=== PATIENT | female | born 1955 | race Caucasian/White ===

== ENCOUNTER → 2019-05-28 | Outpatient (CLI) | payer MEDICARE | END | disposition home or self-care (01) | LOC: PREOP 09:49 | PROVIDERS: ATTEND Surgery | DX: Z01.818 Encounter for other preprocedural examination (principal) ==

== ENCOUNTER 2019-08-04 05:33 | Outpatient (CLI) | payer MEDICARE ==
[~2019-08-04] VITALS: Ht 157 cm; Wt 71.0 kg
[2019-08-04] MEDS ORDERED: BUPR8TAB SL (08:53)
[2019-08-04 09:11] VITALS: BP 136/71
[2019-08-04] MEDS ORDERED: LINA290C PO (10:10)
[2019-08-04] MEDS ORDERED: LORA10TA7 PO (10:10)
[2019-08-04] MEDS ORDERED: LISI40TA PO (10:10)
[2019-08-04] MEDS ORDERED: CARV25TA PO (10:10)
[2019-08-04] MEDS ORDERED: CLON0.5T4 PO (10:10)
[2019-08-04] MEDS ORDERED: PRAV80TA2 PO (10:10)
[2019-08-04] MEDS ORDERED: MONT10TA24 PO (10:10)
[2019-08-04] MEDS ORDERED: MELO15TA39 PO (10:10)
[2019-08-04] MEDS ORDERED: OMEP40CA27 PO (10:10)
[2019-08-04] MEDS ORDERED: ZOLP10TA5 PO (10:10)
== END 2019-08-04 15:00 | disposition home or self-care (01) ==
LOC: PREOP 05:33 → EDBD 05:33 → PREOP 15:00
PROVIDERS: ATTEND Surgery
DX: Z01.818 Encounter for other preprocedural examination (principal)
CPT/HCPCS: 87081

== ENCOUNTER 2019-08-25 06:49 | Day surgery (SDC) | payer MEDICARE ==
[2019-08-25] VITALS (12 sets, daily range): BP systolic 137–205; BP diastolic 66–94
[~2019-08-25] VITALS: Ht 157 cm; Wt 71.0 kg
[~2019-08-25 06:49] MED LIST: BUPR8TAB SL; CARV25TA PO; CLON0.5T4 PO; HEParin (CATH LAB) 2,000 ML IV ONE; LIDOCAINE 1% INJ 20 ML 20 ML VIAL ONE; LINA290C PO; LISI40TA PO; LORA10TA7 PO; MELO15TA39 PO; MONT10TA24 PO; NS IV 1000 ML 1,000 ML ONE; OMEP40CA27 PO; PRAV80TA2 PO; ZOLP10TA5 PO
[2019-08-25 07:12] LABS: HEMOGLOBIN 13.1 G/DL (11.5-16.0); MEAN PLATELET VOLUME 10.5 FL (7.4-10.4); RED CELL DISTRIBUTION WIDTH 12.3 % (10.0-14.5); WHITE BLOOD COUNT 10.5 10^3/uL (4.3-11.0)
[2019-08-25] MEDS: NS IV 1000 ML 1,000 ML IV SCH ×2 (07:12→10:28)
[2019-08-25 07:24] LABS: INR 0.9 (0.8-1.4); PROTHROMBIN TIME PATIENT 12.1 SEC (12.2-14.7)
[2019-08-25 07:30] LABS: ALANINE AMINOTRANSFERASE 23 U/L (0-55); ALBUMIN 4.2 GM/DL (3.2-4.5); ALKALINE PHOSPHATASE 64 U/L (40-136); BILIRUBIN,TOTAL 0.4 MG/DL (0.1-1.0); BUN/CREATININE RATIO 19; CARBON DIOXIDE 28 MMOL/L (21-32); CHLORIDE 105 MMOL/L (98-107); CHOLESTEROL 123 MG/DL (< 200); CREATININE SERUM 0.79 MG/DL (0.60-1.30); GFR ESTIMATED > 60; GLUCOSE 89 MG/DL (70-105); HDL CHOLESTEROL 37 MG/DL (40-60); SODIUM 142 MMOL/L (135-145); TOTAL PROTEIN 7.3 GM/DL (6.4-8.2); TRIGLYCERIDES 146 MG/DL (<150); VLDL CHOLESTEROL 29 MG/DL (5-40)
[2019-08-25] MEDS ORDERED: CLOP75TA69 PO (07:42)
[2019-08-25] MEDS ORDERED: CLON0.5T PO (07:42)
[2019-08-25] MEDS ORDERED: OMEP40CA27 PO (07:42)
[2019-08-25] MEDS ORDERED: BISA5TAB PO (07:42)
[2019-08-25] MEDS ORDERED: ASPI-586 PO (07:42)
[2019-08-25] MEDS ORDERED: fentaNYL INJECTION 100 MCG/2 ML AMP ONE ×2 (08:24→09:32)
[2019-08-25] MEDS ORDERED: MIDAZOLAM 5 MG/5 ML (VERSED) VIAL ONE (08:24)
--- NOTE | 2019-08-25 08:28 | NUR ---
SPOKE WITH THE PT (SHE HAD ALL HER MED BOTTLES) TO COMPLETE THE MED REC. PT WAS ABLE TO TELL ME HOW/WHEN SHE TAKES EACH MED. PT TAKES ALL HER ONCE DAILY MEDS AT AROUND 1900 COREG 25: THE BOTTLE SAYS " 1 TAB BID" HOWEVER THE PT SAYS THE DR DECREASED THAT TO JUST ONCE DAILY AND THAT IS HOW SHE TAKES IT NOW. SHE ALSO HAD A BOTTLE OF THE COREG 12.5MG 1 TAB BID- THE PATIENT SAYS SHE DOES NOT TAKE THIS STRENGTH AND ONLY HAS IT INCASE SHE RUNS OUT OF THE 25MG THEN SHE WILL DOUBLE UP ON THE 12.5MG. THE FOLLOWING ARE FILL DATES FROM [facility]: 04-29-2019 COREG 25MG #180/180DS (SEE ABOVE NOTE) 06-13-2019 PRAVASTATIN 80MG #90/90DS 06-26-2019 MELOXICAM 15MG #90/90DS 06-28-2019 LORATADINE 10MG #90/90DS 07-16-2019 OMEPRAZOLE 40MG #90\\PRN 07-19-2019 LINZESS 290MCG #30/30DS 08-12-2019 MONTELUKAST 10MG #30/30DS 08-12-2019 LISINOPRIL 40MG #90/90DS 08-17-2019 ZOLPIDEM 10MG #30/30DS 08-17-2019 CLONAZEPAM 0.5MG #120/PRN 08-17-2019 PLAVIX 75MG #90/90DS 08-17-2019 GENTLE LAX 5MG #30/30DS 08-18-2019 BUPRENORPHINE 8MG #75 OTC MEDS: ASPIRIN
[2019-08-25] MEDS ORDERED: HEParin 1000 UNIT/ML (10ML VIAL) FOR BOLUS ONE (09:41)
[2019-08-25] MEDS ORDERED: EPTIFIBATIDE BOLUS 20 ML IV ONE (09:42)
[2019-08-25] MEDS ORDERED: MIDAZOLAM 2 MG/2 ML (VERSED) VIAL ONE ×2 (09:42→10:00)
[2019-08-25] MEDS ORDERED: NS IV 1000 ML 1,000 ML ONE (10:04)
[2019-08-25] MEDS ORDERED: NS IV 1000 ML 1,000 ML IV SCH (11:25)
--- NOTE | 2019-08-25 11:25 | Cardiac Procedure Note-CS/ASA ---
Pre-Procedure Note Pre-Op Procedure Note H&P Reviewed The H&P was reviewed, patient examined and no changes noted. Date H&P Reviewed: Aug 25, 2019 Time H&P Reviewed: 08:50 Conscious Sedation Pre-Proced Time 08:50 ASA Score 3 For ASA 3 and 4: Consider anesthesia and medical clearance. Also, for patients with a history of failed moderate sedation consider anesthesia. Airway Lungs Heart ASA score ASA 1: a normal healthy patient ASA 2: a patient with a mild systemic disease (mid diabetes, controlled hypertension, obesity ASA 3: a patient with a severe systemic disease that limits activity (angina, COPD, prior Myocardial infarction) ASA 4: a patient with an incapacitating disease that is a constant threat to life (CHF, renal failure) ASA 5: a moribund patient not expected to survive 24 hrs. (ruptured aneurysm) ASA 6: a declared brain- patient whose organs are being harvested. For emergent operations, add the letter E after the classification Mallampati Classification Grade 2 Sedation Plan Analgesia, Amnesia, Plan communicated to team members, Discussed options with patient/fam, Discussed risks with patient/fam The patient is an appropriate candidate to undergo the planned procedure, sedation, and anesthesia. The patient immediately re-assessed prior to indication. VANESA MENDEZ MD FACP FAC CCDS Aug 25, 2019 11:25
--- NOTE | 2019-08-25 11:29 | Discharge Inst-Post CATH ---
Discharge Inst-CATH/EP Post Cardiac Cath/EP D/C Inst Follow Up/Plan F/u with Dr Vega next week ACTIVITY * Go Home directly and rest. * Limit activity of the leg (or wrist if it was used) for 7 days including aerobics, swimming, jogging, bicycling, etc. * Restrict stair-climbing for 7 days if possible, if not, climb up with your no n-cath leg, then bring together on the same step. * Avoid lifting, pushing, pulling or excessive movement of the affected ext remity for 7 days. * Customary sexual activity may be resumed after 2 days-use caution not to use a position that strains or causes pain to the affected extremity. * No driving for 24 hours. * NO SMOKING. * Avoid straining for bowel movements for 7 days. * Gentle walking on level ground is allowed. * Returning to work will depend on the type of procedure and the results. Your doctor will discuss this with you. CALL YOUR DOCTOR FOR ANY OF THE FOLLOWING: *If bleeding from the puncture site occurs- Apply gentle pressure to site with clean cloth and call your doctor or EMS. * If a knot or lump forms under the skin, increases in size, or causes pain. * If bruising appears to be worsening or moving further down your leg instead of disappearing. * Temperature above 101 F. CARE OF YOUR GROIN INCISION; * Bruising or purple discoloration of the skin near the puncture site is common. * You may shower only, no bathtub bathing for 5 days. Be careful to avoid slipping as your leg may feel stiff. * If a closure device was used on your femoral artery, please see the attached guide regarding care of the device and your leg. * Leave dressing on FOR 24 hours. CARE OF YOUR WRIST INCISION; * Bruising or purple discoloration of the skin near the puncture site is common. * You may shower. * DO NOT submerge wrist. * Leave dressing on FOR 24 hours. VANESA VEGA MD FACP FAC CCDS Aug 25, 2019 11:29
--- NOTE | 2019-08-25 11:29 | Discharge Inst-Cardiology ---
Discharge Inst-Cardiac Discharge Medications Continued Medications: Aspirin (Aspir 81) 81 Mg Tablet.dr 81 MG PO 1700, TAB Bisacodyl (Gentle Laxative) 5 Mg Tablet 5 MG PO 1900, TAB Buprenorphine HCl (Buprenorphine HCl) 8 Mg Tab.subl 8 MG SL Q8 -12H for 7 Days, TAB Carvedilol (Carvedilol) 25 Mg Tablet 25 MG PO 1900, TAB Clonazepam (Clonazepam) 0.5 Mg Tablet 0.5 MG PO HS, TAB Clonazepam (Klonopin) 0.5 Mg Tablet 0.5 MG PO TID PRN for ANXIETY, TAB Clopidogrel Bisulfate (Plavix) 75 Mg Tablet 75 MG PO 1900, TAB Linaclotide (Linzess) 290 Mcg Capsule 290 MCG PO 1900, CAP Lisinopril (Lisinopril) 40 Mg Tablet 40 MG PO 1900, TAB Loratadine (Loratadine) 10 Mg Tablet 10 MG PO 1900, TAB Meloxicam (Meloxicam) 15 Mg Tablet 15 MG PO 1900, TAB Montelukast Sodium (Montelukast Sodium) 10 Mg Tablet 10 MG PO 1700, TAB Omeprazole (Omeprazole) 40 Mg Capsule.dr 40 MG PO DAILY, CAP Omeprazole (Omeprazole) 40 Mg Capsule.dr 40 MG PO HS PRN for HEARTBURN, CAP Pravastatin Sodium (Pravastatin Sodium) 80 Mg Tablet 80 MG PO 1900, TAB Zolpidem Tartrate (Zolpidem Tartrate) 10 Mg Tablet 10 MG PO HS, TAB VANESA MENDEZ MD FACP [facility] CCDS Aug 25, 2019 11:29
[2019-08-25] MEDS ORDERED: PATIENT MAY USE OWN MEDS, ALL PO SCH (11:30)
--- NOTE | 2019-08-25 12:05 | CARDIAC CATHETERIZATION ---
DATE OF SERVICE: 08/25/2019 CARDIAC CATHETERIZATION The patient is a 63-year-old lady who has coronary artery disease and has had coronary artery bypass surgery and subsequent percutaneous intervention to the right coronary artery. She has been experiencing increasing exertional shortness of breath, which was felt to be an angina equivalent. Cardiac catheterization was carried out after having obtained an informed consent for cardiac catheterization and possible ad hoc intervention. DESCRIPTION OF PROCEDURE: She was brought to the cardiac catheterization laboratory in a fasting state. Right groin was prepared and draped in the usual sterile fashion. Lidocaine 1% used for local anesthesia. Modified Seldinger technique was used to advance a 5-Niuean sheath in right femoral artery, 5-Niuean JL4 catheter for left coronary angiography, 5-Niuean JR4 catheter was used for angiography of the right coronary and the most caudal saphenous vein graft. For the mid saphenous vein graft, we used a left coronary artery bypass catheter. The most cephalic saphenous vein graft is known to be chronically occluded. We used a pigtail catheter to carry out left heart catheterization, left ventricular angiography. We also carried out aortic root angiography after pulling the catheter back into the aortic root. This was performed to delineate the sites of the aortocoronary grafts. Also, we were able to visualize the aortic arch and the origin of the neck vessels. PERCUTANEOUS INTERVENTION TO THE SAPHENOUS VEIN GRAFT TO THE DIAGONAL: Following completion of the diagnostic procedure, we attempted percutaneous intervention to the saphenous vein graft to the first diagonal (known to be sequential to a sub-branch). We exchanged the sheath over a wire for a 6-Niuean sheath. We gave double bolus of Integrilin and 5000 units of intravenous heparin. We spent a long time trying to engage the saphenous vein graft with multiple catheters. We were not able to adequately engage the graft. We were able to advance the coronary intervention wire to the saphenous vein graft, but not able to actually selectively engage the graft with any of the catheters that we used today. We felt that without adequate engagement, attempted percutaneous intervention would be risky because if complications do occur, we may not be able to salvage it adequately. Therefore, after nearly 30 minutes of fluoroscopy, we decided to cancel the procedure for today because the lesion is stable and unchanged following the attempted intervention. This will be undertaken at a later date, if needed. The patient tolerated the procedure well. HEMODYNAMICS: Left ventricular end-diastolic pressure following coronary angiography was 31 mmHg. There is no significant pressure gradient on pullback across the aortic valve. Ascending aortic pressure was 184/89 with a mean of 124 mmHg. LEFT VENTRICULAR ANGIOGRAPHY: Left ventricular angiography was carried out to the right anterior oblique projection. Global left ventricular systolic function, normal regional wall motion abnormalities seen. Left ventricular ejection fraction is approximately 60%. CORONARY ANGIOGRAPHY: Left main coronary artery does not exhibit significant disease. Left anterior descending artery has 80% mid vessel stenosis following the first diagonal branch. Left circumflex artery has diffuse moderate disease and approximately 60% to 70% stenosis in its first main obtuse marginal branch at the site of bifurcation. The right coronary artery has a patent stent in its ostial and proximal portions. This stent exhibits approximately 50% in-stent restenosis. The rest of the right coronary artery is dominant and is of a small caliber. AORTOCORONARY GRAFT ANGIOGRAPHY: The most cephalic aortocoronary graft is occluded. The mid saphenous vein graft is to a bifurcating diagonal and exhibits approximately 80% stenosis in its distal portion just prior to insertion into the graft. We were not able to intervene on it today because of reasons noted above. The most caudal graft is a saphenous vein graft to the left anterior descending artery, which exhibits approximately 50% to 60% ostial stenosis and is patent and has a good distal runoff. CONCLUSIONS: 1. [place] coronary artery disease consisting of 80% mid vessel stenosis of the left anterior descending, 60% to 70% proximal stenosis of the first obtuse marginal, and 50% in-stent restenosis of the ostial and proximal right coronary. 2. Occluded saphenous vein graft to left circumflex. 3. Patent saphenous vein graft to diagonal system. There is 80% stenosis prior to its insertion. Attempt at intervention to this was unsuccessful today. 4. Patent saphenous vein graft to distal left anterior descending. 5. 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 This was not reattempted today. 6. Elevated left ventricular end-diastolic pressure. 7. Normal global left ventricular systolic function with ejection fraction approximately 65%. DISCUSSION AND RECOMMENDATIONS: Based on the results of the study, we are continuing dual antiplatelet therapy. We are continuing statins and beta blockers. We have again advised her to quit smoking. We may make another attempt at percutaneous intervention to the saphenous vein graft to the diagonal. This was unsuccessful today because of very difficult engagement of the graft, which we were not able to accomplish adequately despite use of multiple catheters. Given the radiation from fluoroscopy and the amount of dye used, we decided to postpone this procedure today. Job ID: [id number] DocumentID: [id number] Dictated Date: 08/25/2019 11:00:28 World Designer Date: 08/25/2019 12:04:04 Dictated By: VANESA MENDEZ MD, MA, FACP, FACC, MTDD
[2019-08-25] MEDS ORDERED: ceFAZolin 2 GM/50 ML NS 50 ML IV ONE (15:45)
== END 2019-08-25 15:42 | disposition home or self-care (01) ==
LOC: CATH 06:49 → SDC 11:26 → CATH 15:42
PROVIDERS: ATTEND Internal Medicine Cardiovascular Disease
DX: I25.10 Atherosclerotic heart disease of native coronary artery without angina pectoris (principal); I77.9 Disorder of arteries and arterioles, unspecified; I70.8 Atherosclerosis of other arteries; E78.5 Hyperlipidemia, unspecified; I82.492 Acute embolism and thrombosis of other specified deep vein of left lower extremity; J44.9 Chronic obstructive pulmonary disease, unspecified; M19.90 Unspecified osteoarthritis, unspecified site; I10 Essential (primary) hypertension; F41.9 Anxiety disorder, unspecified; Z88.2 Allergy status to sulfonamides; Z88.5 Allergy status to narcotic agent; Z88.8 Allergy status to other drugs, medicaments and biological substances; Z79.899 Other long term (current) drug therapy; Z87.891 Personal history of nicotine dependence; Z95.1 Presence of aortocoronary bypass graft; Z82.3 Family history of stroke
CPT/HCPCS: 36415; 80053; 80061; 85027; 85610; 85730; 87081; 93459; 93567

== ENCOUNTER 2019-09-15 06:48 | Day surgery (SDC) | payer MEDICARE ==
[2019-09-15] VITALS (12 sets, daily range): BP systolic 126–188; BP diastolic 80–95
[~2019-09-15] VITALS: Ht 157 cm; Wt 72.0 kg
[~2019-09-15 06:48] MED LIST changes: +ASPI-586 PO; +BISA5TAB PO; +CLON0.5T PO; +CLOP75TA69 PO; -MONT10TA24 PO; +MONT10TA26 PO
[2019-09-15] MEDS: NS IV 1000 ML 1,000 ML IV SCH ×3 (07:16→18:51)
[2019-09-15 07:29] LABS: HEMOGLOBIN 11.8 G/DL (11.5-16.0); MEAN PLATELET VOLUME 10.4 FL (7.4-10.4); WHITE BLOOD COUNT 8.4 10^3/uL (4.3-11.0)
[2019-09-15 07:42] LABS: PROTHROMBIN TIME PATIENT 13.1 SEC (12.2-14.7)
[2019-09-15 07:55] LABS: ALANINE AMINOTRANSFERASE 14 U/L (0-55); ALKALINE PHOSPHATASE 58 U/L (40-136); BILIRUBIN,TOTAL 0.5 MG/DL (0.1-1.0); BUN/CREATININE RATIO 21; CALCIUM 9.5 MG/DL (8.5-10.1); CARBON DIOXIDE 26 MMOL/L (21-32); CHLORIDE 106 MMOL/L (98-107); CHOLESTEROL 112 MG/DL (< 200); CREATININE SERUM 0.77 MG/DL (0.60-1.30); GFR ESTIMATED > 60; GLUCOSE 101 MG/DL (70-105); HDL CHOLESTEROL 36 MG/DL (40-60); POTASSIUM 3.8 MMOL/L (3.6-5.0); SODIUM 144 MMOL/L (135-145); TOTAL PROTEIN 7.1 GM/DL (6.4-8.2); TRIGLYCERIDES 102 MG/DL (<150); VLDL CHOLESTEROL 20 MG/DL (5-40)
[2019-09-15] MEDS ORDERED: MIDAZOLAM 5 MG/5 ML (VERSED) VIAL ONE (07:57)
[2019-09-15] MEDS ORDERED: fentaNYL INJECTION 100 MCG/2 ML AMP ONE ×2 (07:57→08:47)
[2019-09-15] MEDS ORDERED: MIDAZOLAM 2 MG/2 ML (VERSED) VIAL ONE ×2 (08:51→09:57)
[2019-09-15] MEDS ORDERED: LIDOCAINE 1% INJ 20 ML 20 ML VIAL ONE (09:23)
[2019-09-15] MEDS ORDERED: HEParin 1000 UNIT/ML (10ML VIAL) FOR BOLUS ONE (09:34)
[2019-09-15] MEDS ORDERED: EPTIFIBATIDE BOLUS 20 ML IV ONE (09:34)
[2019-09-15] MEDS ORDERED: niCARdipine 25 MG/10 ML (CARDENE) AMP IV ONE (09:49)
[2019-09-15] MEDS ORDERED: NS (IVPB) 250 ML ONE (09:49)
[2019-09-15] MEDS ORDERED: NS IV 1000 ML 1,000 ML ONE (09:59)
[2019-09-15] MEDS ORDERED: CLOPIDOGREL 75 MG (PLAVIX) TABLET ONE (10:16)
[2019-09-15] MEDS ORDERED: ASPIRIN 81 MG CHEW (CHILDREN'S ASA) ONE (10:16)
--- NOTE | 2019-09-15 10:37 | Cardiac Procedure Note-CS/ASA ---
Pre-Procedure Note Pre-Op Procedure Note H&P Reviewed The H&P was reviewed, patient examined and no changes noted. Date H&P Reviewed: Sep 15, 2019 Time H&P Reviewed: 08:40 Conscious Sedation Pre-Proced Time 08:40 ASA Score 3 For ASA 3 and 4: Consider anesthesia and medical clearance. Also, for patients with a history of failed moderate sedation consider anesthesia. Airway Lungs Heart ASA score ASA 1: a normal healthy patient ASA 2: a patient with a mild systemic disease (mid diabetes, controlled hypertension, obesity ASA 3: a patient with a severe systemic disease that limits activity (angina, COPD, prior Myocardial infarction) ASA 4: a patient with an incapacitating disease that is a constant threat to life (CHF, renal failure) ASA 5: a moribund patient not expected to survive 24 hrs. (ruptured aneurysm) ASA 6: a declared brain- patient whose organs are being harvested. For emergent operations, add the letter E after the classification Mallampati Classification Grade 2 Sedation Plan Analgesia, Amnesia, Plan communicated to team members, Discussed options with patient/fam, Discussed risks with patient/fam The patient is an appropriate candidate to undergo the planned procedure, sedation, and anesthesia. The patient immediately re-assessed prior to indication. VANESA MENDEZ MD FACP FAC CCDS Sep 15, 2019 10:37
[2019-09-15] MEDS ORDERED: NON-FORMULARY MEDICATION 1 EA EA (Omeprazole 40 MG) PO PRN (10:45)
[2019-09-15] MEDS ORDERED: PATIENT MAY USE OWN MEDS, ALL PO SCH (10:45)
[2019-09-15] MEDS ORDERED: clonazePAM 0.5 MG (KlonoPIN) TAB PO PRN (10:45)
[2019-09-15] MEDS ORDERED: NON-FORMULARY MEDICATION 1 EA EA (Buprenorphine HCl 8 MG) SL SCH (10:45)
--- NOTE | 2019-09-15 11:00 | NUR ---
Patient arrived to room 512 at 1100. VSS. patient is alert and oriented. right groin puncture site from heart cath has a mynx in place as well as a gauze and opsite. Dorsalis pedis pulses normal and equal bilaterally. patient denies pain. patients is at bedside. This nurse educated patient on bedrest hours and explained to her the importance of it. bed in low position, wheels locked, call light in reach. will continue to closely monitor.
--- NOTE | 2019-09-15 11:44 | CARDIAC CATHETERIZATION ---
DATE OF SERVICE: 09/15/2019 CORONARY INTERVENTION REPORT The patient is a 63-year-old lady, who is known to have coronary artery disease. She has multiple coronary artery disease risk factors. She had an abnormal stress test that led to a cardiac catheterization on 08/25/2019. She was found to have a patent saphenous vein graft to a diagonal, but intervention could not be undertaken because of a difficult origin of the graft that could not be cannulated with multiple guide catheters. Because of considerable amount of radiation and contrast, further attempts were postponed. Today, she comes in for a repeat intervention. DESCRIPTION OF PROCEDURE: She was brought to the cardiac catheterization laboratory in a fasting state. The right brachial area and the right groin were prepared and draped in the usual sterile fashion. We first attempted a brachial approach. Under ultrasound guidance, we were able to advance an 0.014 access wire into the brachial, but we were not able to advance it adequately, indicating chronic disease within the artery. We abandoned that approach. We held pressure to achieve hemostasis. We switched the access to the right groin. Lidocaine 1% was used for local anesthesia. Modified Seldinger technique was used to advance a 6-Slovak sheath into the right femoral artery. PCI TO SVG TO DIAG We used a 6-Slovak Lorenzo'sCrook guide catheter to engage the saphenous vein graft to the diagonal artery. This did not engage appropriately, but adequately enough for us to advance a ChoICE floppy wire into the graft and the tip of the wire was placed in the distal diagonal. We first carried out stenting of the ostium of the graft, which was exhibiting 80% stenosis. We stented it with Xience Sushma 3.0 x 12 mm stent. At the ostium, the stent appeared somewhat under deployed. Therefore, we carried out balloon angioplasty with and NC Dalton 3.5 x 12 mm balloon. This fully expanded the stent. PCI TO LAD-DIAG We then carried out balloon angioplasty of a lesion in the diagonal itself, situated just prior to a bifurcation. We used an Emerge 2.0 x 12 mm balloon. This reduced the stenosis from 95% to approximately 70%. The balloon was removed and we stented the lesion with a Xience Sushma 2.5 x 8 mm stent. Subsequent angiography revealed 0% residual stenosis within the distal part of the graft. There was no significant residual stenosis at the end of the procedure. MARIE flow in the distal vessel prior to the procedure was MARIE 2. Following the procedure, the flow was MARIE 3. The patient received 5000 units of intravenous heparin, a double bolus of Integrilin and 1000 mcg of intracoronary nicardipine during the procedure. She tolerated the procedure well. At the end of the procedure, angiography of the right femoral artery was carried out through the sheath. Mynx was used to achieve hemostasis. CONCLUSIONS: 1) 80% stenosis at ostium of SVG to Diag stented with Xience Sushma 3.0 x 12 mm stent, and postdilated with a 3.5 x 12 mm noncompliant balloon. 2) 95% stenosis in Diag, before a bifurcation, stented with Alpine Xience 2.5 x 12 mm stent. DISCUSSION AND RECOMMENDATIONS: Risk factor modification has again been reviewed. Current regimen is being continued. The current regimen includes dual antiplatelet therapy. We have advised her to continue to refrain from smoking cigarettes. Job ID: [id number] DocumentID: [id number] Dictated Date: 09/15/2019 10:31:32 Safety Investigator Date: 09/15/2019 11:43:29 Dictated By: VANESA MENDEZ MD, MA, FACP, FACC, MTDD
--- NOTE | 2019-09-15 12:44 | NUR ---
this nurse called updating him on patient having nausea, patients groin site does not have any bruising and has not changed, all VSS, paint denies pain. order received from 4mg IV for nausea now and Q4H PRN
[2019-09-15] MEDS ORDERED: ONDANSETRON 4 MG/2 ML (SDV) Z0FRAN IVP PRN (12:45)
[2019-09-15] MEDS ORDERED: PANTOPRAZOLE 40 MG (PROTONIX) TAB PO PRN (13:15)
[2019-09-15] MEDS ORDERED: MONTELUKAST 10 MG (SINGULAIR) TAB PO SCH (17:00)
[2019-09-15] MEDS ORDERED: LORATADINE (CLARITIN) 10 MG TAB PO SCH (19:00)
[2019-09-15] MEDS ORDERED: NON-FORMULARY MEDICATION 1 EA EA (Pravastatin Sodium 80 MG) PO SCH (19:00)
[2019-09-15] MEDS ORDERED: NON-FORMULARY MEDICATION 1 EA EA (Carvedilol 25 MG) PO SCH (19:00)
[2019-09-15] MEDS ORDERED: BISACODYL 5 MG (DULCOLAX) TABLET PO SCH (19:00)
[2019-09-15] MEDS ORDERED: NON-FORMULARY MEDICATION 1 EA EA (Meloxicam 15 MG) PO SCH (19:00)
[2019-09-15] MEDS ORDERED: lisINopril 40 MG (PRINIVIL) TABLET PO SCH (19:00)
[2019-09-15] MEDS ORDERED: BISACODYL 5 MG PO SCH (19:00)
[2019-09-15] MEDS ORDERED: CARVEDILOL 12.5 MG (COREG) TABLET PO SCH (19:00)
[2019-09-15] MEDS ORDERED: MELOXICAM 7.5 MG (MOBIC) TABLET PO SCH (19:00)
[2019-09-15] MEDS ORDERED: CLOPIDOGREL 75 MG (PLAVIX) TABLET PO SCH (19:00)
[2019-09-15] MEDS ORDERED: NON-FORMULARY MEDICATION 1 EA EA (Linaclotide (Linzess) 290 MCG) PO SCH (19:00)
[2019-09-15] MEDS ORDERED: NON-FORMULARY MEDICATION 1 EA EA (Zolpidem Tartrate 10 MG) PO SCH (21:00)
[2019-09-15] MEDS ORDERED: ZOLPIDEM 5 MG (AMBIEN) TAB PO SCH (21:00)
[2019-09-15] MEDS ORDERED: clonazePAM 0.5 MG (KlonoPIN) TAB PO SCH (21:00)
[2019-09-16] VITALS: BP 115/60
[2019-09-16] MEDS: NS IV 1000 ML 1,000 ML IV SCH ×2 (02:37→02:38)
[2019-09-16 03:52] LABS: HEMOGLOBIN 10.4 G/DL (11.5-16.0); MEAN PLATELET VOLUME 10.6 FL (7.4-10.4); RED CELL DISTRIBUTION WIDTH 12.3 % (10.0-14.5); WHITE BLOOD COUNT 6.5 10^3/uL (4.3-11.0)
[2019-09-16 04:08] VITALS: BP 134/76
[2019-09-16 04:15] LABS: BUN/CREATININE RATIO 17; CALCIUM 8.6 MG/DL (8.5-10.1); CARBON DIOXIDE 27 MMOL/L (21-32); CHLORIDE 109 MMOL/L (98-107); CREATININE SERUM 0.72 MG/DL (0.60-1.30); GFR ESTIMATED > 60; GLUCOSE 101 MG/DL (70-105); POTASSIUM 3.8 MMOL/L (3.6-5.0); SODIUM 143 MMOL/L (135-145)
[2019-09-16 07:32] VITALS: BP 155/103
--- NOTE | 2019-09-16 07:50 | Progress Note - Cardiology ---
Cardiology SOAP Progress Note Subjective: Lying in bed. Significant other at the bedside. She c/o being tired this morning. No c/o CP, palpitations, syncope or near syncope. C/O some SOB with exertion. C/O right groin tenderness with palpation. Objective: I&O/Vital Signs 09/16/19 09/16/19 09/16/19 09/16/19 00:00 01:00 04:08 06:45 Temp 36.1 36.0 Pulse 51 73 64 63 Resp 16 18 B/P (MAP) 115/60 (78) 134/76 (95) Pulse Ox 93 93 O2 Delivery Room Air Room Air 09/16/19 09/16/19 07:32 08:36 Temp 36.6 Pulse 75 Resp 20 B/P (MAP) 155/103 (120) 129/74 (92) Pulse Ox 98 O2 Delivery Room Air 09/16/19 00:00 Intake Total 400 ml Output Total 400 ml Balance 0 ml Side: right Groin site without hematoma: Yes Condition: DP/PT pulses palpable, extremity w/d/p Bruising: mild bruising Constitutional: AAO x 3, well-developed, well-nourished Respiratory: No accessory muscle use, No respiratory distress; chest expansion is symmetric, chest is bilaterally symmetric, lungs clear to auscultation Cardiovascular: regular rate-rhythm; No JVD; S1 and S2 Gastrointestional: No tender; soft, audible bowel sounds Extremities: no lower extremity edema bilateral Neurologic/Psychiatric: grossly intact (moves all extremities) Skin: No rash on exposed areas; other (Right upper arm with bruising) Results/Procedures: Labs Laboratory Tests 09/16/19 03:43: White Blood Count 6.5, Red Blood Count 3.48L, Hemoglobin 10.4L, Hematocrit 32L, Mean Corpuscular Volume 92, Mean Corpuscular Hemoglobin 30, Mean Corpuscular Hemoglobin Concent 33, Red Cell Distribution Width 12.3, Platelet Count 181, Mean Platelet Volume 10.6H, Sodium Level 143, Potassium Level 3.8, Chloride Level 109H, Carbon Dioxide Level 27, Anion Gap 7, Blood Urea Nitrogen 12, Creatinine 0.72, Estimat Glomerular Filtration Rate > 60, BUN/Creatinine Ratio 17, Glucose Level 101, Calcium Level 8.6 Laboratory Tests 3/3/20 07:19 09/16/19 03:43 Procedures S/P cardiac cath with successful intervention of September 15, 2019. Please refer to cardiac cath report of 09-15-2019 for details. A/P: Assessment: CAD. S/p CABG x 3 in 2008. Most recent cardiac cath of September 15, 2019 80% stenosis at ostium of SVG to Diag stented with Xience Sushma 3.0 x 12 mm stent, and postdilated with a 3.5 x 12 mm noncompliant balloon. 95% stenosis in Diag, before a bifurcation, stented with Alpine Xience 2.5 x 12 mm stent. Card cath of 08/25/19: [place] CAD consisting of 80% mid LAD, 60-70%prox OM1, 50% instent of prox RCA; occluded SVT to OM, patent SVT to diag with 80% prior to insertion; patent SVT to distal LAD; known occ of AWAIS to RCA,; elev LVEDP LVEF 65%. Chronic tobacco use, quit smoking in December 2018 Hypertension Hyperlipidemia Carotid art dz: greater than 80% R ICA, approx 60% L ICA stenoses on carotid u/s of 08/17/19 Abnormal MPI on 03/14/2019 (mild ischemia in interolat and ant beckman) by Dr Leon in [facility], [place] Echo by Dr Leon 04/22/19: LVEF 61%, mild MR, mild TR, minimal (max gradient 9 mmHg), estimated PASP 41 mmHg, hypomotility of the interventricular septum Fam h/o CAD: mother had myocardial infarctions beginning at the age of 47 Plan: S/P successful coronary intervention on 09-15-2019 Continue dual anti-platelet tx Has only been taking Coreg 25 mg once a day d/t low BP on twice a day dosing at home. Will change dose to 12.5mg BID Continue GLENNA, statin C/O right groin discomfort - stat groin u/s this morning If groin u/s OK, discharge home today F/U appt in 3 weeks BRONWYN MARIN Sep 16, 2019 07:50
--- NOTE | 2019-09-16 08:07 | NUR ---
Patient stated to me that she has her protonix and aspirin with her, this nurse was unaware, and that she already took her protonix and aspirin this AM.
[2019-09-16 08:36] VITALS: BP 129/74
[2019-09-16] MEDS ORDERED: PANTOPRAZOLE 40 MG (PROTONIX) TAB PO SCH (09:00)
[2019-09-16] MEDS ORDERED: ASPIRIN 81 MG CHEW (CHILDREN'S ASA) PO SCH (09:00)
[2019-09-16] MEDS ORDERED: NON-FORMULARY MEDICATION 1 EA EA (Omeprazole 40 MG) PO SCH (09:00)
[2019-09-16] MEDS ORDERED: CARV12.52 PO (09:10)
--- NOTE | 2019-09-16 09:14 | Discharge Inst-Cardiology ---
Discharge Inst-Cardiac Discharge Medications New Medications: Carvedilol (Coreg) 12.5 Mg Tablet 12.5 MG PO BID, #60 TAB 5 Refills Continued Medications: Aspirin (Aspir 81) 81 Mg Tablet.dr 81 MG PO 1700, TAB Bisacodyl (Gentle Laxative) 5 Mg Tablet 5 MG PO 1900, TAB Buprenorphine HCl (Buprenorphine HCl) 8 Mg Tab.subl 8 MG SL Q8 -12H for 7 Days, TAB Clonazepam (Clonazepam) 0.5 Mg Tablet 0.5 MG PO HS, TAB Clonazepam (Klonopin) 0.5 Mg Tablet 0.5 MG PO TID PRN for ANXIETY, TAB Clopidogrel Bisulfate (Plavix) 75 Mg Tablet 75 MG PO 1900, TAB Linaclotide (Linzess) 290 Mcg Capsule 290 MCG PO 1900, CAP Lisinopril (Lisinopril) 40 Mg Tablet 40 MG PO 1900, TAB Loratadine (Loratadine) 10 Mg Tablet 10 MG PO 1900, TAB Meloxicam (Meloxicam) 15 Mg Tablet 15 MG PO 1900, TAB Montelukast Sodium (Montelukast Sodium) 10 Mg Tablet 10 MG PO 1700, TAB Omeprazole (Omeprazole) 40 Mg Capsule.dr 40 MG PO DAILY, CAP Pravastatin Sodium (Pravastatin Sodium) 80 Mg Tablet 80 MG PO 1900, TAB Zolpidem Tartrate (Zolpidem Tartrate) 10 Mg Tablet 10 MG PO HS, TAB Discontinued Medications: Carvedilol (Carvedilol) 25 Mg Tablet 25 MG PO 1900, TAB Omeprazole (Omeprazole) 40 Mg Capsule.dr 40 MG PO HS PRN for HEARTBURN, CAP New, Converted or Re-Newed RX: Transmitted to Pharmacy Patient Instructions Patient Instructions: Please schedule follow up appointment to see Dr. Vega in 3 weeks BRONWYN MARIN Sep 16, 2019 09:14
--- NOTE | 2019-09-16 10:24 | Progress Note - Cardiology ---
Cardiology SOAP Progress Note Subjective: No cp or palp or syncope No shortness of breath at rest Mild to mod R groin discomfort at site of vascular access Gen weakness No focal weakness Nausea yesterday, none since No v/d Objective: I&O/Vital Signs 09/16/19 09/16/19 09/16/19 09/16/19 00:00 01:00 04:08 06:45 Temp 36.1 36.0 Pulse 51 73 64 63 Resp 16 18 B/P (MAP) 115/60 (78) 134/76 (95) Pulse Ox 93 93 O2 Delivery Room Air Room Air 09/16/19 09/16/19 07:32 08:36 Temp 36.6 Pulse 75 Resp 20 B/P (MAP) 155/103 (120) 129/74 (92) Pulse Ox 98 O2 Delivery Room Air 09/16/19 00:00 Intake Total 400 ml Output Total 400 ml Balance 0 ml Side: right Groin site without hematoma: Yes Condition: DP/PT pulses palpable, extremity w/d/p Bruising: mild bruising Constitutional: AAO x 3, well-developed, well-nourished Respiratory: No accessory muscle use, No respiratory distress; chest expansion is symmetric, chest is bilaterally symmetric, lungs clear to auscultation Cardiovascular: regular rate-rhythm; No JVD; S1 and S2 Gastrointestional: No tender; soft, audible bowel sounds Extremities: no lower extremity edema bilateral Neurologic/Psychiatric: grossly intact (moves all extremities) Skin: No rash on exposed areas; other (Right upper arm with bruising) Results/Procedures: Labs Laboratory Tests 09/16/19 03:43: White Blood Count 6.5, Red Blood Count 3.48L, Hemoglobin 10.4L, Hematocrit 32L, Mean Corpuscular Volume 92, Mean Corpuscular Hemoglobin 30, Mean Corpuscular Hemoglobin Concent 33, Red Cell Distribution Width 12.3, Platelet Count 181, Mean Platelet Volume 10.6H, Sodium Level 143, Potassium Level 3.8, Chloride Level 109H, Carbon Dioxide Level 27, Anion Gap 7, Blood Urea Nitrogen 12, Creatinine 0.72, Estimat Glomerular Filtration Rate > 60, BUN/Creatinine Ratio 17, Glucose Level 101, Calcium Level 8.6 Laboratory Tests 09/15/19 07:19 09/16/19 03:43 A/P: Assessment: CAD. S/p CABG x 3 in 2008. Card cath of 08/25/19: [place] CAD consisting of 80% mid LAD, 60-70%prox OM1, 50% instent of prox RCA; occluded SVT to OM, patent SVT to diag with 80% prior to insertion; patent SVT to distal LAD; known occ of AWAIS to RCA,; elev LVEDP LVEF 65%. Most recent cardiac cath of September 15, 2019 80% stenosis at ostium of SVG to Diag stented with Xience Sushma 3.0 x 12 mm stent, and postdilated with a 3.5 x 12 mm noncompliant balloon. 95% stenosis in Diag, before a bifurcation, stented with Alpine Xience 2.5 x 12 mm stent. 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 Will change dose to 12.5mg BID Continue GLENNA, statin C/O right groin discomfort - stat groin u/s this morning If groin u/s OK, discharge home today F/U appt in 3 weeks We have advised her to call Dr Reese for scheduling of carotid surgery DANAE. She understands and states she will comply VANESA MENDEZ MD FACP FAC CCDS Sep 16, 2019 10:24
[2019-09-16 12:30] VITALS: BP 130/66
--- NOTE | 2019-09-16 12:32 | Diagnostic Imaging Report ---
INDICATION: Right groin pain status post catheterization. COMPARISON: None available. TECHNIQUE: Grayscale, color Doppler and spectral Doppler imaging of the right inguinal region was performed. FINDINGS: Color Doppler imaging shows patency of the common femoral artery and common femoral vein. No pseudoaneurysm is present or features of arteriovenous fistula. Greater saphenous vein is patent. No loculated fluid collection to indicate hematoma. IMPRESSION: 1. No pseudoaneurysm, arteriovenous fistula formation or hematoma in the right groin. Dictated by: Dictated on workstation # [id number]
--- NOTE | 2019-09-16 13:01 | NUR ---
This nurse called , verbal orders received to discharge patient. IV removed by this nurse, tip intact. VSS. Entire discharge packet discussed with patient including changes that have been made to medications, incision care and restrictions. This nurse scheduled a follow up appointment for Saturdayseptember 20 at 1:50pm, gave me telephone orders to have patient follow up with him next week. Patients is at bedside, he is her ride home. Patient was complimentary of the care that she received here at [facility],her was as well. Patient states that he does not have any further questions, that all of her questions have been answered. This nurse walked with patient down to entrance where patient got into private vehicle with her to go home. Patient left floor at 1301.
== END 2019-09-16 13:01 | disposition home or self-care (01) ==
LOC: CATH 06:48 → CSD 11:12 → CATH 09-16 13:01
PROVIDERS: ATTEND Internal Medicine Cardiovascular Disease
DX: I25.10 Atherosclerotic heart disease of native coronary artery without angina pectoris (principal); I77.89 Other specified disorders of arteries and arterioles; I10 Essential (primary) hypertension; E78.5 Hyperlipidemia, unspecified; J44.9 Chronic obstructive pulmonary disease, unspecified; Z87.891 Personal history of nicotine dependence; Z79.899 Other long term (current) drug therapy; Z79.82 Long term (current) use of aspirin; Z79.02 Long term (current) use of antithrombotics/antiplatelets; Z82.49 Family history of ischemic heart disease and other diseases of the circulatory system
CPT/HCPCS: 36415; 80048; 80053; 80061; 85027; 85610; 85730; 87081; 93926

== ENCOUNTER → 2020-08-16 | Outpatient (CLI) | payer MEDICARE ==
[~2020-08-16] MED LIST changes: +CARV12.52 PO; -HEParin (CATH LAB) 2,000 ML IV ONE; -LIDOCAINE 1% INJ 20 ML 20 ML VIAL ONE; -MONT10TA26 PO; +MONT10TA97 PO; -NS IV 1000 ML 1,000 ML ONE
--- NOTE | 2020-08-16 16:54 | Diagnostic Imaging Report ---
PROCEDURE: US carotid duplex, bilateral. TECHNIQUE: Multiple real-time grayscale images were obtained over the carotid arteries in various projections, bilaterally. Additional spectral analysis and color Doppler duplex images were also obtained. INDICATION: Carotid stenosis. FINDINGS: There is moderate plaque at the right carotid bifurcation and proximal right internal carotid artery. Velocities in the mid right internal carotid artery reached 253 cm/s. This is consistent with 50-69% diameter stenosis. Velocities on the left are unremarkable. Both vertebral arteries show antegrade flow. IMPRESSION: Bilateral carotid plaque, greatest on the right. Velocity measurements in the mid right ICA are consistent with 50-69% diameter stenosis. Parameters based on the consensus panel Cervantes-Scale and Doppler ultrasound criteria published May 2003, Radiology, Volume 229. DOPPLER (peak systolic velocity M/S Right Left CCA .80 .93 ICA Proximal 2.36 1.42 ICA Mid 2.53 1.48 ICA Distal 1.28 .74 RATIO 3.2 1.6 ECA .97 .85 VERT .78 .89 Dictated by: Dictated on workstation # [id number]
== END ==
LOC: RAD 11:09
PROVIDERS: ATTEND Nurse Practitioner
DX: I65.23 Occlusion and stenosis of bilateral carotid arteries (principal)
CPT/HCPCS: 93880